=== PATIENT | male | born 1990 | race Caucasian/White ===

== ENCOUNTER 2016-09-21 21:02 | Emergency (ER) | payer BC, OTHER ==
--- NOTE | 2016-09-21 21:38 | EDM.PDOC ---
ED HPI GENERAL MEDICAL PROBLEM - General Chief Complaint: Upper Extremity Injury/Pain Stated Complaint: PT HURT LT HAND Time Seen by Provider: 09/21/16 21:35 - History of Present Illness INITIAL COMMENTS - FREE TEXT/NARRATIVE: HISTORY AND PHYSICAL: History of present illness: Patient 25-year-old male presents with a concern of injury to the fifth digit of his left hand that occurred by a crush injury yesterday he denies other trauma concerned is no laceration or abrasion is bruising swelling and limited range of motion secondary to pain Review of systems: As per history of present illness and below otherwise all systems reviewed and negative. Past medical history: As per history of present illness and as reviewed below otherwise noncontributory. Surgical history: As per history of present illness and as reviewed below otherwise noncontributory. Social history: No reported history of drug or alcohol abuse. Family history: As per history of present illness and as reviewed below otherwise noncontributory. Physical exam: HEENT: Atraumatic, normocephalic, pupils reactive, negative for conjunctival pallor or scleral icterus, mucous membranes moist, throat clear, neck supple, nontender, trachea midline. Lungs: Clear to auscultation, breath sounds equal bilaterally, chest nontender. Heart: S1S2, regular, negative for clicks, rubs, or JVD. Abdomen: Soft, nondistended, nontender. Negative for masses or hepatosplenomegaly. Negative for costovertebral tenderness. Pelvis: Stable nontender. Genitourinary: Deferred. Rectal: Deferred. Extremities: Fifth digit has moderate swelling and some ecchymosis on the volar aspect limited range of motion secondary to pain there's no gross deformity CMS in neurovascular is unremarkable no obvious tendon deficit/injury Neuro: Awake, alert, oriented. Cranial nerves II through XII unremarkable. Cerebellum unremarkable. Motor and sensory unremarkable throughout. Exam nonfocal. Diagnostics: X-ray left hand Therapeutics: Volar splint Impression: #1 acute injury left hand (fifth digit) Definitive disposition and diagnosis as appropriate pending reevaluation and review of above. Left 5-Little finger Pain Score (Numeric/FACES): 4 - Related Data Allergies Allergy/AdvReac Type Severity Reaction Status Date / Time No Known Allergies Allergy Verified 09/21/16 21:22 Home Meds: Home Meds . [No Known Home Meds] 09/21/16 [History] Review of Systems - Review of Systems Review Of Systems: ROS reveals no pertinent complaints other than HPI. ED EXAM, GENERAL - Physical Exam Exam: See Below (See dictation) Course - Vital Signs Last Recorded V/S: Last Vital Signs Temp 36.3 C 09/21/16 21:06 Pulse 75 09/21/16 21:06 Resp 18 09/21/16 21:06 BP 130/68 09/21/16 21:06 Pulse Ox 96 09/21/16 21:06 - Orders/Labs/Meds Orders: Active Orders 24 hr Category Date Time Status Hand Comp Min 3V Lt [CR] Stat Exams 09/21/16 21:22 Ordered Departure - Departure Time of Disposition: 21:37 Disposition: Home, Self-Care 01 Condition: Good Clinical Impression: Hand injury - Discharge Information Forms: ED Department Discharge Additional Instructions: The following information is given to patients seen in the emergency department who are being discharged to home. This information is to outline your options for follow-up care. We provide all patients seen in our emergency department with a follow-up referral. The need for follow-up, as well as the timing and circumstances, are variable depending upon the specifics of your emergency department visit. If you don't have a primary care physician on staff, we will provide you with a referral. We always advise you to contact your personal physician following an emergency department visit to inform them of the circumstance of the visit and for follow-up with them and/or the need for any referrals to a consulting specialist. The emergency department will also refer you to a specialist when appropriate. This referral assures that you have the opportunity for followup care with a specialist. All of these measure are taken in an effort to provide you with optimal care, which includes your followup. Under all circumstances we always encourage you to contact your private physician who remains a resource for coordinating your care. When calling for followup care, please make the office aware that this follow-up is from your recent emergency room visit. If for any reason you are refused follow-up, please contact the [facility] emergency department at and asked to speak to the emergency department charge nurse. Splint as directed Motrin/Tylenol as directed follow-up primary medical doctor 1 -2 days return as needed as discussed
[2016-09-21 22:32] VITALS: BP 127/67
--- NOTE | 2016-09-22 09:50 | CR ---
EXAM DATE: 09/21/16 PATIENT'S AGE: 25 Patient: BRISEIDA MENDIETA Facility: [place], [place] Site . Site : 1990 Study: XRay Extremity hand [id number]/10/2017 9:37:39 PM Ordering Physician: Doctor Triplett Final Report: Indication: Injury. Technique: Three views of the left hand Comparison: None available Findings: Bones: An angulated and mildly displaced fracture of the distal aspect of the 5th middle phalanx. No dislocation. Joint spaces: Unremarkable. Soft tissues: 5th digit soft tissue swelling. Impression: A 5th middle phalanx fracture. Dictated by Stalin Perry MD @ 09/21/2016 9:48:55 PM Dictated by: Stalin Perry MD @ 09/21/2016 21:49:04 (Electronic Signature) Report Signed by Proxy. SIRIA
== END 2016-09-21 22:32 | disposition home or self-care (01) ==
LOC: MW.ED 21:02
DX: S62.627A Displaced fracture of middle phalanx of left little finger, initial encounter for closed fracture (principal); W23.1XXA Caught, crushed, jammed, or pinched between stationary objects, initial encounter
CPT/HCPCS: 29130; 73130-26-LT; 73130-LT; 99282; 99283